=== PATIENT | female | born 1985 ===

== ENCOUNTER 2019-04-02 09:51 | Emergency (ER) | payer OTHER ==
[~2019-04-02] VITALS: Ht 162.6 cm; Wt 76.2 kg
[2019-04-02] MEDS ORDERED: ZITHROMAX500 MG PO (12:50)
== END 2019-04-02 13:33 | disposition home or self-care (01) ==
LOC: ER 09:51
DX: J06.9 Acute upper respiratory infection, unspecified (principal)

== ENCOUNTER → 2019-04-12 | Emergency (ER) | payer OTHER ==
[~2019-04-12] VITALS: Ht 162.6 cm; Wt 74.8 kg
[~2019-04-12] MED LIST: ZITHROMAX500 MG PO
== END | disposition left against medical advice (07) ==
LOC: ER 23:44
DX: Z53.20 Procedure and treatment not carried out because of patient's decision for unspecified reasons (principal)